=== PATIENT | female | born 1960 | race Caucasian/White ===

== ENCOUNTER 2017-12-16 17:23 | Emergency (ER) | payer OTHER ==
[2017-12-16 17:35] VITALS: BP 158/107; PULSE 71; RESP 16; TEMP 98.6; O2SAT 94
--- NOTE | 2017-12-16 18:00 | EDPHY ---
H & P HPI/ROS: CHIEF COMPLAINT: Cough and runny nose History by patient HISTORY OF PRESENT ILLNESS: 57-year-old woman with no significant past medical history other than anxiety and white coat hypertension presents complaining of 4 -5 days of cough sometimes productive of green sputum, runny nose and congested sinuses, sore throat, hoarse voice and occasional feeling like she is wheezing. She denies any chest pain or shortness of breath. She denies any nausea or vomiting. She is eating and drinking note difficulty. There has been no diarrhea or rash. Her has a similar illness. She did get a flu shot this year. She does not smoke. She had a wisdom tooth extraction about 10 days ago for which she was on antibiotics. REVIEW OF SYSTEMS: As in HPI, and all other systems reviewed and are negative Smoking Status: Never smoked Physical Exam: General Appearance: Alert and no distress. Head: normocephalic, atraumatic, no sinus tenderness Eyes: Pupils equal and round no injection. Ears: TM clear bilaterally OP: mucus membranes moist, no tonsillar enlargement, positive erythema but no exudates Neck: no meningismus, no cervical nodes, no submandibular nodes Respiratory: Chest is nontender, lungs are clear to auscultation. No wheezes, rales, rhonchi except slight wheeze with cough Cardiac: regular rate and rhythm. S1, S2, no murmurs, gallops, rubs appreciated. Gastrointestinal: Abdomen is soft and nontender, no masses, bowel sounds normal. Musculoskeletal: Neck is supple and nontender. Extremities have full range of motion and are nontender. Skin: No rashes or lesions. Constitutional: Initial Vital Signs Temperature (C) 37 C 12/16/17 17:30 Heart Rate 71 12/16/17 17:30 Respiratory Rate 16 12/16/17 17:30 Blood Pressure 158/107 H 12/16/17 17:30 O2 Sat (%) 94 12/16/17 17:30 O2 Delivery Mode Room Air Allergies/Adverse Reactions: No Known Allergies Allergy (Unverified 12/16/17 17:28) Home Medications: Medication Instructions Recorded Albuterol [Proventil Inhaler HFA 1 - 2 puffs IH Q4H #1 mdi 12/16/17 (*)] Atenolol 12/16/17 CLONAZEPAM 12/16/17 MDM/Departure - MDM ED Course/Re-evaluation: 57-year-old otherwise healthy woman presents with URI symptoms and no evidence of systemic toxicity or hypoxia. Patient's blood pressure was high on arrival but she states this always occurs when she goes to the doctor's office and is otherwise normal when she goes home. We discussed home care and conservative measures. Because of her wheezy cough will give her a trial of albuterol inhaler. We discussed return precautions. Patient is discharged home in stable condition. - Depart Disposition: Home, Routine, Self-Care Clinical Impression: Upper respiratory infection, acute Condition: Good Instructions: Upper Respiratory Infection (DC) Additional Instructions: You were seen by Dr. Cordelia Bobo. Use a humidifier in the room where you sleep. Try hot drinks with honey. Take ibuprofen 400-600mg 4 times daily and Tylenol 500-1000mg every 6 hours as needed for fever and/or pain. Use albuterol inhaler as needed for cough and wheezing. Return for any worsening or new concerns. Prescriptions: Albuterol [Proventil Inhaler HFA (*)] 1 - 2 puffs IH Q4H #1 mdi Referrals: NONE *PRIMARY CARE P,. [Primary Care Provider] - As per Instructions
[2017-12-16] MEDS ORDERED: ALBUTEROL INH PREPACK MDI TAKEHOME ONE (18:29)
== END 2017-12-16 18:11 | disposition home or self-care (01) ==
LOC: CED 17:23
DX: J06.9 Acute upper respiratory infection, unspecified (principal)